=== PATIENT | female | born 1970 | race American Indian/Alaskan Native ===

== ENCOUNTER 2017-07-11 00:18 | Emergency (ER) | payer MEDICAID ==
[2017-07-11 00:19] VITALS: BMI 21.2
[2017-07-11 01:15] VITALS: RESP 18
[2017-07-11] MEDS ORDERED: Albuterol-Ipratrop 3 mg / 0.5 (3 ml) UD INH STA ×3 (01:19→01:25)
[2017-07-11] MEDS ORDERED: Albuterol-Ipratrop 3 mg / 0.5 (3 ml) UD ONE (01:31)
--- NOTE | 2017-07-11 01:50 | ED PDOC ---
HPI: SOB/CHF/COPD Time Seen by Provider: 07/11/17 01:04 Chief Complaint (Nursing): Shortness Of Breath Chief Complaint (Provider): Shortness Of Breath History Per: Patient History/Exam Limitations: no limitations Onset/Duration Of Symptoms: Persistent, Other (x3 months) Current Symptoms Are (Timing): Still Present Initiating Event: Upper Respiratory Illness Current Respiratory Medications: See Home Med List Associated Symptoms: denies: Fever Additional Complaint(s): 47 year old female presents to ED with complaints of SOB x3 months and has a past medical history of asthma. Patient notes that Advair and Ventolin provided no relief, prompting ED visit. (+) wheezing and cough. (-) fever, nausea, vomiting, or diarrhea. PCP: [facility] ([facility]3] Past Medical History Reviewed: Historical Data, Nursing Documentation, Vital Signs Vital Signs: Last Vital Signs Temp 97.9 F 07/11/17 00:54 Pulse 78 07/11/17 00:54 Resp 18 07/11/17 01:14 BP 164/78 H 07/11/17 00:54 Pulse Ox 96 07/11/17 01:55 - Medical History PMH: Anemia, Anxiety, Asthma, Bronchitis, HIV, Pneumonia Denies: Chronic Kidney Disease - Surgical History Surgical History: - Family History Family History: States: Unknown Family Hx - Social History Current smoker - smoking cessation education provided: Yes (smokes cigarettes) Drugs: Opiates - Immunization History Hx Tetanus Toxoid Vaccination: No Hx Influenza Vaccination: No Hx Pneumococcal Vaccination: No - Home Medications Home Medications: Ambulatory Orders Medication Instructions Recorded RX: Alprazolam [Xanax] 2 mg PO PRN PRN 12/25/14 Albuterol HFA [Ventolin HFA 90 2 puff IH [id number] 30 Days puff 03/29/17 mcg/actuation (8 g)] Fluticasone/Salmeterol 250/50 1 puff INH DAILY 06/14/17 [Advair Diskus 250/50] Albuterol 0.083% [Albuterol 0.083% 2.5 mg IH Q4 PRN #20 neb 07/06/17 Inhal Kizzy (2.5 mg/3 ml) UD] Mask, Face [Nebulizer Aerosol Mask 1 dev XX PRN PRN #1 dev 07/06/17 Adult] RX: Nebulizer [Aeroeclipse II] 1 each MC Q4 PRN #1 each 07/06/17 RX: Prednisone 50 mg PO DAILY #5 tablet 07/06/17 Albuterol/Ipratropium [Combivent 2 puff IH Q6 #1 inhaler 07/09/17 Respimat] Methylprednisolone [Medrol Dose 4 mg PO DAILY #21 mg 07/09/17 Pack (21 tabs)] Albuterol Sulfate [Proair Hfa] 0.09 mg IH Q6 PRN #1 inh 07/11/17 RX: predniSONE [predniSONE Tab] 60 mg PO QAM #12 tab 07/11/17 - Allergies Allergies/Adverse Reactions: Allergies Allergy/AdvReac Type Severity Reaction Status Date / Time egg Allergy ANAPHYLAXIS Verified 07/11/17 00:49 Curb-65 Severity Score - CURB-65 Severity Score Confusion: No Respiratory Rate greater than/equal to 30: No Systolic BP <90 or Diastolic BP less than/equal 60mmHg: No Age >64: No Curb-65 Score: 0 Percentage 30-day mortality: 0.6% Wells Criteria for PE - Wells Criteria for Pulmonary Embolism Heart Rate >100: No Hemoptysis: No Total Score: 0 Review of Systems ROS Statement: Except As Marked, All Systems Reviewed And Found Negative Constitutional: Negative for: Fever Respiratory: Positive for: Cough, Shortness of Breath, Wheezing Gastrointestinal: Negative for: Nausea, Vomiting, Diarrhea Physical Exam - Reviewed Nursing Documentation Reviewed: Yes Vital Signs Reviewed: Yes - Physical Exam Appears: Positive for: Non-toxic, No Acute Distress Skin: Positive for: Normal Color, Warm, Dry Eye Exam: Positive for: EOMI. Negative for: Normal appearance (pinpoint pupils) Cardiovascular/Chest: Positive for: Regular Rate, Rhythm. Negative for: Murmur Respiratory: Positive for: Decreased Breath Sounds (diminished air entry bilaterally), Rhonchi (bilateral), Wheezing (bilateral). Negative for: Respiratory Distress Neurologic/Psych: Positive for: Alert, Oriented. Negative for: Motor/Sensory Deficits - ECG O2 Sat by Pulse Oximetry: 96 (RA) Pulse Ox Interpretation: Normal Medical Decision Making Medical Decision Makin Initial impression: asthma exacerbation Initial plan: * Duonebs 3mL INH x3 * Prednisone 60mg PO * Peak flow pre/post Tx * Re-eval 0520 Upon re-evaluation, patient notes marked improvement in symptoms and is stable for discharge home. Dx: asthma exacerbation Scribe Attestation: Documented by Marium Gomez acting as a scribe Avery Cain MD. MD [place] Attestation: All medical record entries made by the Scribe were at my direction and personally dictated by me. I have reviewed the chart and agree that the record accurately reflects my personal performance of the history, physical exam, medical decision making, and the department course for this patient. I have also personally directed, reviewed, and agree with the discharge instructions and disposition. Disposition - Clinical Impression Clinical Impression: Asthma exacerbation - Patient ED Disposition Is Patient to be Admitted: No - Disposition Disposition: Routine/Home Disposition Time: 05:20 Condition: STABLE Prescriptions: Albuterol Sulfate [Proair Hfa] 0.09 mg IH Q6 PRN #1 inh PRN Reason: Shortness Of Breath RX: predniSONE [predniSONE Tab] 60 mg PO QAM #12 tab Instructions: Asthma in Adults Forms: [facility] (Eritrean)
[2017-07-11 06:43] VITALS: BP 122/78; PULSE 86; TEMP 98.4; O2SAT 97
== END 2017-07-11 05:40 | disposition home or self-care (01) ==
LOC: H.ER 00:18
DX: J45.901 Unspecified asthma with (acute) exacerbation (principal); F41.9 Anxiety disorder, unspecified